=== PATIENT | female | born 1950 | race Caucasian/White ===

== ENCOUNTER → 2019-06-08 | Outpatient (CLI) | payer BC ==
[2019-06-08 17:49] LABS: HEMATOCRIT 36.9 % (36.0-47.0); HEMOGLOBIN 11.7 g/dl (12.0-15.5); MEAN CORPUSCULAR HGB CONC 31.7 g/dl (32.0-36.5); MEAN CORPUSCULAR VOLUME 94.6 fl (80.0-96.0); PLATELET COUNT, AUTOMATED 243 10^3/uL (150-450); WHITE BLOOD COUNT 5.8 10^3/uL (4.0-10.0)
[2019-06-08 17:57] LABS: ALBUMIN 3.4 GM/DL (3.2-5.2); ALT/SGPT 23 U/L (12-78); BILIRUBIN,TOTAL 0.6 MG/DL (0.2-1.0); BLOOD UREA NITROGEN 17 MG/DL (7-18); CALCIUM LEVEL 8.4 MG/DL (8.8-10.2); CARBON DIOXIDE LEVEL 26 MEQ/L (21-32); CHLORIDE LEVEL 113 MEQ/L (98-107); CHOLESTEROL LEVEL 173 MG/DL (<200); CHOLESTEROL RISK RATIO 2.306 (<5); CREATININE FOR GFR 0.77 MG/DL (0.55-1.30); GLOMERULAR FILTRATION RATE > 60.0 (>45); GLUCOSE, FASTING 92 MG/DL (70-100); HDL CHOLESTEROL 75 MG/DL (>40); IRON (FE) 91 UG/DL (50-170); LDL CHOLESTEROL 85 MG/DL (<100); NON-HDL-C 98 MG/DL; PERCENT SATURATION 34.7 % (13.2-45.0); POTASSIUM SERUM 4.2 MEQ/L (3.5-5.1); SODIUM LEVEL 145 MEQ/L (136-145); TOTAL IRON BINDING CAPACITY 262 UG/DL (250-450); TOTAL PROTEIN 7.3 GM/DL (6.4-8.2); TRIGLYCERIDES LEVEL 63 MG/DL (<150)
[2019-06-08 18:27] LABS: MALB URINE SIEMENS 26.1 MG/L; MAU/CREAT RATIO 16.4 MCG/MG (0.0-30.0)
[2019-06-08 18:55] LABS: APPEARANCE, URINE CLEAR (CLEAR); BACTERIA, URINE AUTO NEGATIVE (NEGATIVE); BILIRUBIN, URINE AUTO NEGATIVE (NEGATIVE); BLOOD, URINE BLOOD NEGATIVE (NEGATIVE); COLOR, URINE YELLOW (YELLOW); GLUCOSE, URINE (UA) AUTO NEGATIVE (NEGATIVE); GRANULAR CAST, URINE AUTO 1 /LPF; KETONE, URINE AUTO NEGATIVE (NEGATIVE); LEUKOCYTE ESTERASE, URINE AUTO NEGATIVE (NEGATIVE); MUCUS, URINE SMALL (NEGATIVE); NITRITE, URINE AUTO NEGATIVE (NEGATIVE); PROTEIN, URINE AUTO NEGATIVE (NEGATIVE); RBC, URINE AUTO 2 /HPF (0-3); SPECIFIC GRAVITY URINE AUTO 1.021 (1.002-1.035); SQUAMOUS EPITHELIAL CELL UR AU 1 /HPF (0-6); UROBILINOGEN, URINE AUTO 0.2 mg/dL (0.0-2.0); WBC, URINE AUTO 1 /HPF (0-3)
[2019-06-10 10:46] LABS: VITAMIN B12 LEVEL > 2000 PG/ML (247-911)
== END ==
LOC: M WUC 09:50
PROVIDERS: ATTEND Internal Medicine
DX: E55.9 Vitamin D deficiency, unspecified (principal); D50.9 Iron deficiency anemia, unspecified; E78.5 Hyperlipidemia, unspecified; E11.9 Type 2 diabetes mellitus without complications; Z79.899 Other long term (current) drug therapy

== ENCOUNTER → 2019-06-12 | Outpatient (CLI) | payer BC | LOC: M WUC 10:23 | PROVIDERS: ATTEND Internal Medicine | DX: E03.9 Hypothyroidism, unspecified (principal) ==

== ENCOUNTER → 2019-06-28 | Outpatient (CLI) | payer BC ==
--- NOTE | 2019-07-03 15:39 | REPMRS ---
Patient History The patient states she has not had a clinical breast exam in over a year. Patient is postmenopausal. Family history of endometrial cancer at age 42 in daughter. Digital Woman Screen Mammo: June 28, 2019 - Exam #: [id number] Bilateral CC and MLO view(s) were taken. Technologist: Genoveva Martinez, Technologist Prior study comparison: September 17, 2015, bilateral digital woman screen mammo, performed at [facility]. February 19, 2014, bilateral digital woman screen mammo, performed at [facility]. June 16, 2012, bilateral digital woman screen mammo, performed at [facility]. FINDINGS: There are scattered fibroglandular densities. There has been no change in the appearance of the mammogram from the prior studies. There is a mild amount of scattered fibroglandular density which is fairly symmetric. There is no interval development of dominant mass, architectural distortion, or grouped microcalcification suggestive of malignancy. 3-D tomosynthesis shows no additional findings. Assessment: BI-RADS/ACR category 1 mammogram. Negative Mammogram. Recommendation Routine screening mammogram of both breasts in 1 year (for women over age 40). This patient's Lifetime Breast Cancer Risk is estimated at 6.2 %. This mammogram was interpreted with the aid of an FDA-approved computer-aided dectection system. Electronically Signed By: Kurt Osorio MD 07/03/19 [id number]
== END ==
LOC: M WHC 14:09
PROVIDERS: ATTEND Internal Medicine
DX: Z12.31 Encounter for screening mammogram for malignant neoplasm of breast (principal)

== ENCOUNTER → 2019-10-17 | Outpatient (CLI) | payer BC | LOC: M PLALAB 09:20 | PROVIDERS: ATTEND Internal Medicine | DX: E03.9 Hypothyroidism, unspecified (principal) ==

== ENCOUNTER → 2020-06-30 | Outpatient (REF) | payer BC ==
[2020-06-30 13:52] LABS: HEMATOCRIT 37.2 % (36.0-47.0); HEMOGLOBIN 11.5 g/dl (12.0-15.5); MEAN CORPUSCULAR HEMOGLOBIN 30.3 pg (27.0-33.0); MEAN CORPUSCULAR HGB CONC 30.9 g/dl (32.0-36.5); MEAN CORPUSCULAR VOLUME 97.9 fl (80.0-96.0); PLATELET COUNT, AUTOMATED 239 10^3/uL (150-450); WHITE BLOOD COUNT 6.6 10^3/uL (4.0-10.0)
[2020-06-30 14:36] LABS: ALBUMIN 3.3 GM/DL (3.2-5.2); ALT/SGPT 26 U/L (12-78); BILIRUBIN,TOTAL 0.5 MG/DL (0.2-1.0); BLOOD UREA NITROGEN 22 MG/DL (7-18); CALCIUM LEVEL 8.5 MG/DL (8.8-10.2); CARBON DIOXIDE LEVEL 25 MEQ/L (21-32); CHLORIDE LEVEL 113 MEQ/L (98-107); CHOLESTEROL LEVEL 182 MG/DL (<200); CHOLESTEROL RISK RATIO 2.426 (<5); CREATININE FOR GFR 0.87 MG/DL (0.55-1.30); GLOMERULAR FILTRATION RATE > 60.0 (>45); GLUCOSE, FASTING 87 MG/DL (70-100); HDL CHOLESTEROL 75 MG/DL (>40); IRON (FE) 50 UG/DL (50-170); LDL CHOLESTEROL 94 MG/DL (<100); NON-HDL-C 107 MG/DL; PERCENT SATURATION 18.9 % (13.2-45.0); POTASSIUM SERUM 4.2 MEQ/L (3.5-5.1); SODIUM LEVEL 145 MEQ/L (136-145); THYROID STIMULATING HORMONE 0.961 uIU/ML (0.358-3.740); TOTAL IRON BINDING CAPACITY 264 UG/DL (250-450); TOTAL PROTEIN 7.2 GM/DL (6.4-8.2); TRIGLYCERIDES LEVEL 65 MG/DL (<150); VITAMIN B12 LEVEL > 2000 PG/ML (247-911)
== END ==
LOC: M PLALAB 13:37
PROVIDERS: ATTEND Internal Medicine
DX: E03.9 Hypothyroidism, unspecified (principal); D50.9 Iron deficiency anemia, unspecified; E55.9 Vitamin D deficiency, unspecified; E78.5 Hyperlipidemia, unspecified

== ENCOUNTER 2020-07-17 15:05 | Emergency (ER) | payer BC, MEDICARE ==
[~2020-07-17] VITALS: Ht 160 cm; Wt 109.1 kg
--- NOTE | 2020-07-17 16:08 | REP ---
INDICATION: trauma COMPARISON: None. TECHNIQUE: AP, lateral, bilateral oblique views of the left elbow. FINDINGS: Evaluation is limited by poor positioning. No obvious acute fracture or dislocation appreciated. IMPRESSION: No obvious acute fracture or dislocation. <Electronically signed by Иван Crabtree > 07/17/20 [id number]
--- NOTE | 2020-07-17 16:09 | REP ---
INDICATION: trauma COMPARISON: None. TECHNIQUE: AP and lateral views of the left humerus FINDINGS: There is a nondisplaced fracture through the surgical neck of the proximal humerus. No further acute fracture or dislocation appreciated. IMPRESSION: Nondisplaced fracture through the surgical neck of the proximal humerus. <Electronically signed by Иван Crabtree > 07/17/20 [id number]
--- NOTE | 2020-07-17 16:10 | REP ---
INDICATION: trauma COMPARISON: None. TECHNIQUE: AP, lateral, bilateral oblique views left wrist. FINDINGS: Osteopenia and degenerative changes are appreciated. Advanced changes are identified at the base of the 5th metacarpal bone and subtle injury cannot be excluded. Correlation is required. No other fracture or dislocation identified or suspected. IMPRESSION: Osteopenia and degenerative changes. Findings as described above. Cannot exclude degenerative change versus subtle fracture at the base of the 5th metacarpal bone. <Electronically signed by Иван Crabtree > 07/17/20 [id number]
--- NOTE | 2020-07-17 16:11 | REP ---
INDICATION: trauma COMPARISON: None. TECHNIQUE: AP, lateral, bilateral oblique views left hand. FINDINGS: Advanced osteopenia and osteoarthritic degenerative changes are appreciated. No obvious acute fracture or dislocation is appreciated. Degenerative change versus subtle fracture at the base of the 5th metacarpal bone cannot be differentiated and warrants directed physical examination. IMPRESSION: Limited by advanced osteopenia and degenerative changes. Questionable injury at the base of the 5th metacarpal bone as described above. <Electronically signed by Иван Crabtree > 07/17/20 [id number]
[2020-07-17] MEDS ORDERED: PERCOCET 5MG/325MG TAB PO ONE (16:15)
[2020-07-17] MEDS ORDERED: OXYC1TAB23 PO (16:16)
[2020-07-17 17:23] VITALS: BP 170/76
== END 2020-07-17 17:17 | disposition home or self-care (01) ==
LOC: M ED 15:05 → EDBD 15:05 → M ED 17:17
DX: S42.295A Other nondisplaced fracture of upper end of left humerus, initial encounter for closed fracture (principal); W00.0XXA Fall on same level due to ice and snow, initial encounter; Y92.9 Unspecified place or not applicable; Y93.9 Activity, unspecified; Y99.9 Unspecified external cause status; Z88.8 Allergy status to other drugs, medicaments and biological substances; E03.9 Hypothyroidism, unspecified

== ENCOUNTER → 2020-07-23 | Outpatient (CLI) | payer BC ==
[~2020-07-23] MED LIST: OXYC1TAB23 PO
--- NOTE | 2020-07-23 10:21 | REP ---
INDICATION: FALL. COMPARISON: None. TECHNIQUE: Internal rotation, external rotation, axillary, and Y-view of the left shoulder. FINDINGS: Comminuted fracture of the proximal humeral head/surgical neck. Underlying age-related osteopenia and mild degenerative changes noted. IMPRESSION: Comminuted fracture of the humeral head/surgical neck. <Electronically signed by Иван Crabtree > 07/23/20 [id number]
== END ==
LOC: M SOG 09:51
PROVIDERS: ATTEND Orthopaedic Surgery Sports Medicine
DX: S42.212A Unspecified displaced fracture of surgical neck of left humerus, initial encounter for closed fracture (principal); X58.XXXA Exposure to other specified factors, initial encounter; Y92.9 Unspecified place or not applicable

== ENCOUNTER → 2020-08-06 | Outpatient (CLI) | payer BC ==
--- NOTE | 2020-08-06 11:09 | REP ---
INDICATION: F/U FX. COMPARISON: Comparison radiographs July 23, 2020.. TECHNIQUE: Four views. FINDINGS: Four views of the left shoulder include axillary view. Healing periosteal callus formation is noted at the site of the impacted comminuted fracture of the proximal humerus. Alignment is unchanged. There is diffuse osteopenia. Thoracic aorta is tortuous. Glenohumeral and acromioclavicular joints are normally aligned. There is some AC joint osteoarthritis. IMPRESSION: Healing comminuted surgical neck fracture left proximal humerus. Osteoporosis. <Electronically signed by Kurt Osorio > 08/06/20 [id number]
--- NOTE | 2020-08-06 11:42 | REP ---
INDICATION: F/U FX. COMPARISON: 07/17/2020. TECHNIQUE: Three views left hand. FINDINGS: Healing nondisplaced fractures are suspected at the base of the 4th and 5th metacarpals. There is mild narrowing of the radiocarpal joint. There is mild diffuse narrowing of the metacarpophalangeal joints. There is moderately severe narrowing of interphalangeal joints with erosive changes, spurring, subchondral sclerosis and cystic change. IMPRESSION: Healing nondisplaced fractures are suspected at the base of the 4th and 5th metacarpals. Arthritic changes as discussed above. <Electronically signed by Bryan Reeevs > 08/06/20 [id number]
== END ==
LOC: M SOG 10:23
PROVIDERS: ATTEND Orthopaedic Surgery Sports Medicine
DX: S42.212D Unspecified displaced fracture of surgical neck of left humerus, subsequent encounter for fracture with routine healing (principal); S62.347D Nondisplaced fracture of base of fifth metacarpal bone, left hand, subsequent encounter for fracture with routine healing; X58.XXXD Exposure to other specified factors, subsequent encounter

== ENCOUNTER → 2020-08-10 | Outpatient (CLI) | payer BC ==
--- NOTE | 2020-08-10 08:40 | REP ---
INDICATION: PAIN LEFT KNEE. COMPARISON: None. TECHNIQUE: Four views. FINDINGS: Four views of the left knee show diffuse osteoporosis. There is non articular spurring of the patella at its upper pole and lower pole quadriceps and patellar tendon insertions. No fracture is seen. Joint spaces are preserved. IMPRESSION: Diffuse osteoporosis. Non articular patellar spurring. No acute bony abnormality. <Electronically signed by Kurt Osorio > 08/10/20 [id number]
== END ==
LOC: M SOG 08:01
PROVIDERS: ATTEND Orthopaedic Surgery Sports Medicine
DX: M25.762 Osteophyte, left knee (principal); M81.0 Age-related osteoporosis without current pathological fracture

== ENCOUNTER → 2020-09-03 | Outpatient (CLI) | payer BC ==
--- NOTE | 2020-09-03 11:12 | REP ---
INDICATION: F/U FX. COMPARISON: Comparison shoulder radiograph August 06, 2020 and July 23, 2020.. TECHNIQUE: Four views of the left shoulder are obtained. FINDINGS: There is diffuse osteopenia. Osteoarthritic hypertrophy is seen at the AC joint. The glenohumeral and acromioclavicular joints are normally aligned. There is gradual mineralization and periosteal reaction associated with the impacted surgical neck fracture of the left proximal humerus. No change in alignment. IMPRESSION: Healing fracture of the proximal humerus on the left. Diffuse osteoporosis. <Electronically signed by Kurt Osorio > 09/03/20 [id number]
== END ==
LOC: M SOG 10:37
PROVIDERS: ATTEND Orthopaedic Surgery Sports Medicine
DX: S42.212D Unspecified displaced fracture of surgical neck of left humerus, subsequent encounter for fracture with routine healing (principal); W18.30XD Fall on same level, unspecified, subsequent encounter; Y92.009 Unspecified place in unspecified non-institutional (private) residence as the place of occurrence of the external cause

== ENCOUNTER → 2020-10-15 | Outpatient (CLI) | payer BC ==
--- NOTE | 2020-10-15 11:26 | REP ---
INDICATION: F/U FX. COMPARISON: Multiple examinations dating through 07/17/2020 TECHNIQUE: Four views of the left shoulder. FINDINGS: Mildly displaced proximal humeral neck fracture is again identified in stable position currently demonstrating periosteal reaction consistent with healing process. Stable underlying osteopenia and degenerative changes noted. IMPRESSION: Healing humeral neck fracture. <Electronically signed by Иван Crabtree > 10/15/20 1126
== END ==
LOC: M SOG 10:19
PROVIDERS: ATTEND Orthopaedic Surgery Sports Medicine
DX: S42.212D Unspecified displaced fracture of surgical neck of left humerus, subsequent encounter for fracture with routine healing (principal); W18.30XD Fall on same level, unspecified, subsequent encounter; Y92.009 Unspecified place in unspecified non-institutional (private) residence as the place of occurrence of the external cause

== ENCOUNTER → 2020-11-14 | Outpatient (CLI) | payer BC ==
--- NOTE | 2020-11-17 08:30 | REP ---
INDICATION: LT KNEE OA ? MENISCUS TEAR. COMPARISON: Radiographs 08/10/2020. TECHNIQUE: Multiple sequences obtained in the axial, coronal and sagittal planes. FINDINGS: Menisci: There is a tear of the body of the lateral meniscus. There is a complex tear of the posterior horn and body of the medial meniscus. Cruciate ligaments: Intact. Collateral ligaments: Intact. Extensor mechanism/patellar retinacula: Intact. Cartilage: There is moderate diffuse chondromalacia of the medial femoral condyle and tibial plateau, with mild chondromalacia of the lateral femoral condyle and tibial plateau. There is moderate chondromalacia of the lateral patellar facet. Bone marrow: There is subchondral marrow edema in the medial femoral condyle. Joint fluid: There is a small joint effusion. Popliteal region: No cyst. There is a thrombosed venous varicosity in the peripheral subcutaneous lateral soft tissues. IMPRESSION: Tear body lateral meniscus. Complex tear posterior horn and body medial meniscus. Global chondromalacia as discussed above. Subchondral marrow edema medial femoral condyle. Small joint effusion. Thrombosed venous varicosity in the peripheral subcutaneous lateral soft tissues. <Electronically signed by Bryan Reeves > 11/17/20 [id number]
== END ==
LOC: M RAD 08:56
PROVIDERS: ATTEND Orthopaedic Surgery
DX: M17.12 Unilateral primary osteoarthritis, left knee (principal)

== ENCOUNTER → 2020-11-23 | Outpatient (CLI) | payer BC ==
[2020-11-23 13:29] LABS: BASO % 0.6 % (0.0-1.0); EOS # 0.2 10^3/uL (0.0-0.5); EOS % 2.5 % (0.0-3.0); HEMOGLOBIN 11.6 g/dl (12.0-15.5); LYMPH # 1.5 10^3/uL (1.5-5.0); LYMPH % 23.8 % (24.0-44.0); MEAN CORPUSCULAR HEMOGLOBIN 29.8 pg (27.0-33.0); MEAN CORPUSCULAR HGB CONC 31.4 g/dl (32.0-36.5); MEAN CORPUSCULAR VOLUME 95.1 fl (80.0-96.0); MONO # 0.5 10^3/uL (0.0-0.8); NEUTROPHILS # 4.2 10^3/uL (1.5-8.5); NEUTROPHILS % 64.8 % (36.0-66.0); PLATELET COUNT, AUTOMATED 228 10^3/uL (150-450); RED BLOOD COUNT 3.89 10^6/uL (4.00-5.40); WHITE BLOOD COUNT 6.4 10^3/uL (4.0-10.0)
[2020-11-23 14:31] LABS: ERYTHROCYTE SEDIMENTATION RATE 33 mm/hr (0-30)
== END ==
LOC: M PLALAB 11:36
PROVIDERS: ATTEND Orthopaedic Surgery
DX: M17.12 Unilateral primary osteoarthritis, left knee (principal)

== ENCOUNTER → 2020-12-07 | Outpatient (CLI) | payer BC ==
[2020-12-07 13:58] LABS: HEMATOCRIT 37.5 % (36.0-47.0); HEMOGLOBIN 11.6 g/dl (12.0-15.5); MEAN CORPUSCULAR HEMOGLOBIN 29.6 pg (27.0-33.0); MEAN CORPUSCULAR HGB CONC 30.9 g/dl (32.0-36.5); MEAN CORPUSCULAR VOLUME 95.7 fl (80.0-96.0); PLATELET COUNT, AUTOMATED 231 10^3/uL (150-450); RED BLOOD COUNT 3.92 10^6/uL (4.00-5.40); WHITE BLOOD COUNT 6.6 10^3/uL (4.0-10.0)
[2020-12-07 14:33] LABS: ALBUMIN 3.4 GM/DL (3.2-5.2); ALT/SGPT 22 U/L (12-78); BILIRUBIN,TOTAL 0.5 MG/DL (0.2-1.0); BLOOD UREA NITROGEN 17 MG/DL (7-18); CALCIUM LEVEL 8.8 MG/DL (8.8-10.2); CARBON DIOXIDE LEVEL 27 MEQ/L (21-32); CHLORIDE LEVEL 113 MEQ/L (98-107); CHOLESTEROL LEVEL 198 MG/DL (<200); CHOLESTEROL RISK RATIO 2.475 (<5); CREATININE FOR GFR 0.77 MG/DL (0.55-1.30); GLOMERULAR FILTRATION RATE > 60.0 (>45); GLUCOSE, FASTING 92 MG/DL (70-100); HDL CHOLESTEROL 80 MG/DL (>40); LDL CHOLESTEROL 101 MG/DL (<100); NON-HDL-C 118 MG/DL; POTASSIUM SERUM 4.4 MEQ/L (3.5-5.1); SODIUM LEVEL 144 MEQ/L (136-145); TOTAL PROTEIN 7.3 GM/DL (6.4-8.2); TRIGLYCERIDES LEVEL 87 MG/DL (<150)
== END ==
LOC: M PLALAB 09:39
PROVIDERS: ATTEND Internal Medicine
DX: I82.90 Acute embolism and thrombosis of unspecified vein (principal)

== ENCOUNTER → 2021-04-07 | Outpatient (CLI) | payer BC | LOC: M LABSMTC 09:09 | PROVIDERS: ATTEND Pediatrics | DX: Z20.822 Contact with and (suspected) exposure to COVID-19 (principal) | CPT/HCPCS: C9803; U0003 ==

== ENCOUNTER → 2021-08-06 | Outpatient (CLI) | payer MEDICARE, OTHER | LOC: M RAD 10:25 | PROVIDERS: ATTEND Internal Medicine | DX: N39.9 Disorder of urinary system, unspecified (principal) ==

== ENCOUNTER → 2022-01-11 | Outpatient (CLI) | payer BC, MEDICARE, OTHER, SELFPAY | LOC: M WHC 08:03 | PROVIDERS: ATTEND Internal Medicine | DX: Z12.31 Encounter for screening mammogram for malignant neoplasm of breast (principal) ==